=== PATIENT | male | born 1995 | race Caucasian/White ===

== ENCOUNTER 2024-01-27 11:13 | Emergency (ER) | payer OTHER, SELFPAY ==
--- NOTE | ~2024-01-27 | CT_ITS ---
EXAMINATION: CT cervical spine wo con DATE: 01/27/2024 13:48 INDICATION: Neck injury. TECHNIQUE: Computed tomography (CT) of the cervical spine was performed without intravenous contrast. Automated exposure control and iterative reconstruction technique were employed. The dose-length pro duct was 619.92 mGy-cm. COMPARISON: None FINDINGS: There is 6 degrees levocurvature of cervical spine. There is kyphosis of cervical spine. Ve rtebral body heights and intervertebral disc heights are normal. C1 ring is ununited posteriorly, a n ormal variant. The facet joints are normal. No central canal stenosis or neural foraminal stenosis. T he adenoids are enlarged. The palatine tonsils are enlarged. IMPRESSION: 1. No fracture. Reviewed, dictated and finalized at location A. IMPRESSION: 1. No fracture.
--- NOTE | ~2024-01-27 | CT_ITS ---
EXAMINATION: CT brain wo con DATE: 01/27/2024 13:48 INDICATION: Head injury. Headache. TECHNIQUE: Computed tomography (CT) of the head was performed without intravenous contrast. The mA wa s adjusted according to patient size. Iterative reconstruction technique was employed. The dose-lengt h product was 605.33 mGy-cm. COMPARISON: None FINDINGS: There is no intracranial hemorrhage, acute infarction, or abnormal intracranial mass lesion . The ventricles are normal in size. The orbits are normal. There is mild mucosal thickening in the p aranasal sinuses. The mastoid air cells are normal. IMPRESSION: 1. Normal brain. Reviewed, dictated and finalized at location A. IMPRESSION: 1. Normal brain.
[2024-01-27 11:36] VITALS: BP 177/106; PULSE 88; RESP 20; TEMP 36.5; O2SAT 97
--- NOTE | 2024-01-27 13:36 | ED.FALL ---
HPI - Fall General Chief Complaint: Fall Stated Complaint: fall Time Seen by Provider: 01/27/24 12:57 Source: patient Mode of arrival: ambulatory Limitations: no limitations History of Present Illness HPI Narrative: 28-year-old male presents with several complaints after a fall he sustained at approximately 3:00 p.m. yesterday when he fell off of a forklift. He has a history of migraines with aura and does feel like 1 of these is starting. denies paresthesias. He is having some left-sided neck pain and cannot fully turn his head to the right. he does not know if he struck his head. Unknown if loss of consciousness as he does have a brief period of time of estimated to be approximately 30 seconds for he was amnestic to the events. Today has been feeling like he might fall asleep abruptly. Afterwards he was on the ground for few minutes. He has not taken any medications yet including that of his migraine medications as he did not know if it was safe to do so. He does have some photophobia. Related Data Allergies Allergy/AdvReac Type Severity Reaction Status Date / Time egg Allergy Anaphylaxis Verified 01/27/24 11:34 [facility] Past Medical History Medical History (Updated 01/28/24 @ 00:09 by Ana Gómez) History of migraine with aura Social History Social History (Updated 01/27/24 @ 13:39 by Janell Dickson MD) Occupation/Education: occupation Additional occupation/education comments: works on/with [employer] Exam Narrative: GENERAL: Well-appearing, well-nourished, and in no acute distress. HEAD: Normocephalic, atraumatic. EYES: Non injected, non icteric. PEAR RL; no APD. Extraocular movements intact without nystagmus ENT: Nares clear, no rhinorrhea or epistaxis. NECK: Supple. Mild tenderness to palpation around the left neck but no tenderness to palpation of at the cervical spine which are midline and without bony process. able to rotate head to the right but to fully to 180? CHEST: speaking in full sentences. No respiratory distress. HEART: Regular rate and rhythm. . ABDOMEN: Soft, nondistended. EXTREMITIES: Normal range of motion. No edema. SKIN: Warm, dry, no rash. NEURO: No focal deficits. Alert and oriented x3. Sensation intact to gross touch in bilateral upper and lower extremities. Speak without aphasia or dysarthria. PSYCH: Normal mood and affect. Course Vital Signs Vital signs: Vital Signs Temperature 97.7 F 01/27/24 11:36 Pulse Rate 88 01/27/24 11:36 Respiratory Rate 20 01/27/24 11:36 Blood Pressure 177/106 H 01/27/24 11:36 Pulse Oximetry 97 01/27/24 11:36 Temperature 97.7 F 01/27/24 11:36 Pulse Rate 84 01/27/24 15:11 Respiratory Rate 20 01/27/24 15:11 Blood Pressure 166/88 H 01/27/24 15:11 Pulse Oximetry 98 01/27/24 15:11 MDM - Fall MDM Narrative Medical decision making narrative: 28-year-old male presents with several complaints after a fall he sustained at approximately 3:00 p.m. yesterday when he fell off of a forklift. He has a history of migraines with aura and does feel like 1 of these is starting. denies paresthesias. In the emergency department he is afebrile with vital signs notable for hypertension. While I do suspect that patient's headache is due to be numbed urology such as his known migraine history, all suspect suspicious for post concussive headache given mechanism injury. Patient is neurologically intact however will obtain imaging after shared decision making. Patient is reassessed. He states his headache is slightly improving all completely resolved. He would prefer to be discharged take his home medications such as Nurtec and the rest of his migraine prescriptions. This is reasonable we discussed return precautions. He is provided a work note. Discharged in stable condition. Differential Diagnosis Differential diagnosis: Likely concussion with loss of consciousness, concussion without loss of conscio
[2024-01-27] MEDS: PROCHLORPERAZINE MALEATE 5 MG TABLET PO (13:50)
[2024-01-27] MEDS: ACETAMINOPHEN 500 MG TABLET 1000 MG PO (13:50)
[2024-01-27 15:11] VITALS: BP 166/88; PULSE 84; RESP 20; O2SAT 98
== END 2024-01-27 15:19 | disposition home or self-care (01) ==
PROVIDERS: Emergency Provider Student in an Organized Health Care Education/Training Program; PCP Physician Assistant
DX: G44.309 Post-traumatic headache, unspecified, not intractable (principal); F07.81 Postconcussional syndrome; G43.109 Migraine with aura, not intractable, without status migrainosus
CPT/HCPCS: 70450; 72125; 99284; A9270